=== PATIENT | male | born 1965 | race Caucasian/White ===

== ENCOUNTER 2018-01-28 10:06 | Day surgery (SDC) | payer OTHER ==
[2018-01-24 13:35] VITALS: BMI 29.8
[2018-01-28] MEDS ORDERED: BUPIVACAINE HCL/PF 2.5 MG/ML - 30 ML VIAL IJ ONE (11:17)
[2018-01-28] MEDS ORDERED: MIDAZOLAM HCL 2 MG/2 ML SINGLE DOSE VIAL ONE (11:19)
[2018-01-28] MEDS ORDERED: DEXAMETHASONE SOD PHOSPHATE 4 MG/1 ML VIAL ONE (11:35)
[2018-01-28] MEDS ORDERED: KETOROLAC TROMETHAMINE 30 MG/1 ML VIAL ONE (11:35)
[2018-01-28] MEDS ORDERED: LIDOCAINE HCL/PF 2% SDV 5ML VIAL ONE (11:35)
[2018-01-28] MEDS ORDERED: ceFAZolin SODIUM 1 GM VIAL ONE (11:35)
[2018-01-28] MEDS ORDERED: ONDANSETRON 4 MG/2 ML VIAL ONE (11:35)
[2018-01-28] MEDS ORDERED: PROPOFOL 20 ML ONE (11:52)
[2018-01-28] MEDS ORDERED: BUPIVACAINE HCL/PF 0.25% (2.5MG/ML) 10 ML VIAL IJ ONE (12:17)
[2018-01-28] MEDS ORDERED: PROMETHAZINE HCL 25 MG/1 ML VIAL IVPUSH PRN (12:26)
[2018-01-28] MEDS ORDERED: oxyCODONE HCL 5 MG TABLET PO PRN ×2 (12:26)
[2018-01-28] MEDS ORDERED: ONDANSETRON 4 MG/2 ML VIAL IVPUSH PRN (12:26)
[2018-01-28] MEDS ORDERED: ONDANSETRON 4 MG/2 ML VIAL IVPUSH ONE ×2 (12:27)
[2018-01-28] MEDS ORDERED: LACTATED RINGERS SOLUTION 1,000 ML IV SCH (12:30)
[2018-01-28 14:05] VITALS: TEMP 98.4
[2018-01-28] MEDS ORDERED: oxyCODONE HCL 5 MG TABLET ONE (14:07)
[2018-01-28 14:45] VITALS: BP 118/84
[2018-01-28 15:37] VITALS: PULSE 58
--- NOTE | 2018-01-31 15:24 | OP ---
DATE OF OPERATION: 01/28/2018 SURGEON: Indio Simons MD TECHNICIAN TEST SYSTEMS: JAYSHREE Kelley. PREOPERATIVE DIAGNOSES: 1. Right knee mediolateral meniscal tear. 2. Right knee cartilage injury. 3. Right knee synovitis. POSTOPERATIVE DIAGNOSES: 1. Right knee mediolateral meniscal tear. 2. Right knee cartilage injury. 3. Right knee synovitis. PROCEDURE: 1. Right knee arthroscopy with partial meniscectomy of the medial and lateral meniscus. (CPT codes 91012) 2. Right knee arthroscopy with chondroplasty and abrasoplasty. (CPT codes 16123). 3. Right knee arthroscopy synovectomy. (CPT codes, 50050). FINDINGS: 1. Medial meniscus body and posterior horn tear. 2. Lateral meniscus posterior horn tear. 3. Synovitis of patellofemoral, medial and lateral notch area. 4. Grade 2 cartilage medial and femoral condyle with a grade 2-3 flap. 5. ACL and PCL tightness. 6. Diffuse grade 1-2 cartilage changes of the lateral tibial plateau. 7. Central grade 2-4 cartilage injury of the patella, trochlea, and patellofemoral joint. PROCEDURE: Informed consent was obtained. The patient came to the operating room, where the lower extremity was prepped and draped in a sterile fashion. A tourniquet was placed on the upper thigh, but not inflated. Using standard arthroscopic technique, a lateral incision and portal was made to allow for introduction of the camera into the suprapatellar bursa. This was then taken to the medial joint line, where under direct visualization, a medial incision and portal was made. Excessive synovium noted in the medial, lateral and patellofemoral and notch area was removed by an upbiter, shaver and Bovie cautery. This was found to bring in inflammatory tissue into the joint surface, a source of pain and dysfunction. Probing of the medial and lateral meniscus found tears, as described in the findings. These were removed with the upbiter and shaver and taken back to a stable rim. Grade 2 to 3 degenerative changes were treated with a chondroplasty, removing all flaking surfaces with low-setting Bovie along the periphery to prevent further flaking. Grade 4 changes, as noted, were treated with an abrasoplasty, creating a bleeding surface at the bone/cartilage interface. Aggressive debridement with shaver/rashida created bleeding surface. Mirco fracture also done when indicated in findings All areas of the knee were once again reexamined. The knee was then drained and a single suture was placed in all portals. A sterile dressing was placed and the patient was transferred to the recovery room without complication. INDIO SIMONS M.D. [id number]
--- NOTE | 2018-02-01 14:03 | PATH ---
Surgical Pathology Report Patient Name: SHIRLEY AVILEZ [facility]. Rec. #: [id number] /Age/Gender: 1965 (Age: 52) / M Account: [id number] Location: [facility] Taken: 01/28/2018 Received: 01/28/2018 Reported: 02/01/2018 Physicians: Indio uCllen M.D. Specimen(s) Received RIGHT KNEE SHAVINGS Clinical History Right knee internal derangement Final Diagnosis KNEE SHAVINGS, RIGHT, ARTHROSCOPY, PARTIAL MEDIAL AND LATERAL MENISCECTOMY AND SYNOVECTOMY: FRAGMENTS OF DENSE FIBROCONNECTIVE TISSUE, ADIPOSE TISSUE, AND SYNOVIUM. Electronically Signed Annmarie Benítez M.D. Gross Description Received in formalin, labeled "right knee shavings," is a 4.0 x 3.8 x 0.4 cm. aggregate of child-yellow soft tissue fragments. A customer service representative teacher portion is submitted in one cassette. /01/28/[facility]
== END 2018-01-28 15:44 | disposition home or self-care (01) ==
LOC: FASU 10:06
PROVIDERS: ATTEND Orthopaedic Surgery
PROC: 0SBC4ZZ Excision of Right Knee Joint, Percutaneous Endoscopic Approach (ICD-10-PCS; 2018-01-28)
PROC: 0SBC4ZZ Excision of Right Knee Joint, Percutaneous Endoscopic Approach (ICD-10-PCS; principal; 2018-01-28 11:30)
DX: S83.241A Other tear of medial meniscus, current injury, right knee, initial encounter (principal); S83.281A Other tear of lateral meniscus, current injury, right knee, initial encounter; S83.8X1A Sprain of other specified parts of right knee, initial encounter; M65.861 Other synovitis and tenosynovitis, right lower leg; X58.XXXA Exposure to other specified factors, initial encounter; Y93.9 Activity, unspecified; Y92.9 Unspecified place or not applicable
CPT/HCPCS: 88304-TC; 94760